=== PATIENT | female | born 1945 | race Caucasian/White ===

== ENCOUNTER 2017-07-22 07:20 | Emergency (ER) | payer OTHER ==
[~2017-07-22] VITALS: Ht 154.9 cm; Wt 77.1 kg
[2017-07-22 07:26] VITALS: BP 162/105
[2017-07-22] MEDS ORDERED: NYST15OI TP (07:47)
[2017-07-22] MEDS ORDERED: NYST15PO9 TP (07:47)
--- NOTE | 2017-07-22 07:47 | PHYS DOC ---
Past History Past Medical History: CAD, Hypertension Past Surgical History: Other Alcohol Use: None Drug Use: None Adult General Chief Complaint Chief Complaint: SKIN RASH/ABSCESS HPI HPI Patient is a 72 year old F who presents with a rash under both breasts that started yesterday. She describes the rash as itchy. She denies other symptoms. She feels that many over the counter tropical medications have not helped her symptoms. She has no other exacerbating or alleviating factors. Review of Systems Review of Systems Constitutional: Denies fever or chills [] Eyes: Denies change in visual acuity, redness, or eye pain [] HENT: Denies nasal congestion or sore throat [] Respiratory: Denies cough or shortness of breath [] Cardiovascular: No additional information not addressed in HPI [] GI: Denies abdominal pain, nausea, vomiting, bloody stools or diarrhea [] : Denies dysuria or hematuria [] Musculoskeletal: Denies back pain or joint pain [] Integument: neg except HPI Neurologic: Denies headache, focal weakness or sensory changes [] Endocrine: Denies polyuria or polydipsia [] All other systems were reviewed and found to be within normal limits, except as documented in this note. Physical Exam Physical Exam Constitutional: Well developed, well nourished, no acute distress, non-toxic appearance. [] HENT: Normocephalic, atraumatic, Eyes: EOMI, conjunctiva normal, no discharge. [] Neck: Normal range of motion, no tenderness, supple, no stridor. [] Cardiovascular:Heart rate regular rhythm, no murmur [] Lungs & Thorax: Bilateral breath sounds clear to auscultation [] Abdomen: Bowel sounds normal, soft, no tenderness, no masses, no pulsatile masses. [] Skin: Erythemitous lesions under both breasts with well demarcated margins and mild central clearing. Satalite lesions were also noted. Neurologic: Alert and oriented X 3, normal motor function, normal sensory function, no focal deficits noted. [] Psychologic: Affect normal, judgement normal, mood normal. [] Current Patient Data Vital Signs Vital Signs Date Time Temp Pulse Resp B/P (MAP) Pulse Ox O2 Delivery O2 Flow Rate FiO2 07/22/17 07:26 97.5 89 16 98 Room Air EKG EKG [] Radiology/Procedures Radiology/Procedures [] Course & Med Decision Making Course & Med Decision Making Pertinent Labs and Imaging studies reviewed. (See chart for details) [] Dragon Disclaimer Dragon Disclaimer This electronic medical record was generated, in whole or in part, using a voice recognition dictation system. Departure Departure: Impression: Primary Impression: Tinea corporis Disposition: 01 HOME, SELF-CARE Condition: STABLE Referrals: JOAN PUCKETT (PCP) Patient Instructions: Yeast Infection of the Skin, [id number] Additional Instructions: Ann was seen in the emergency department for rash. No emergency medical condition was found on history or physical exam. Her symptoms most consistent with a yeast infection. She is given a prescription for nystatin powder and cream. She was encouraged to use one or the other on affected areas 2-3 times a day over the next week. She was also encouraged follow-up with her primary care doctor in the next 7-10 days for further management. Scripts Nystatin (NYSTATIN) 15 Gm Powder 1 LANDON TP BID, #1 BOTTLE Prov: MARIA ISABEL HANLEY MD 07/22/17 Nystatin (NYSTATIN) 15 Gm Oint...g. 1 LANDON TP TID, #15 GM 1 Refill Prov: MARIA ISABEL HANLEY MD 07/22/17 MARIA ISABEL HANLEY MD Jul 22, 2017 07:47
== END 2017-07-22 07:53 | disposition home or self-care (01) ==
LOC: ER 07:20
DX: B35.4 Tinea corporis (principal); I10 Essential (primary) hypertension; I25.10 Atherosclerotic heart disease of native coronary artery without angina pectoris
CPT/HCPCS: 99283

== ENCOUNTER → 2019-05-16 | Outpatient (CLI) | payer MEDICARE ==
[~2019-05-16] MED LIST: NYST15OI TP; NYST15PO9 TP
--- NOTE | 2019-05-16 19:23 | RAD ---
CHEST PA LATERAL History: Cardiomyopathy Comparison: 10/02/2010 Portable Chest X-ray Exam. Findings: Frontal and lateral views of the chest were obtained. Dual-lead left-sided ICD noted. The cardiomediastinal silhouette is mildly enlarged. Pulmonary vasculature is borderline congested. The lungs are clear. No pleural effusion or pneumothorax is seen. There is no acute bone abnormality. IMPRESSION: Borderline congestive heart failure. Electronically signed by: Pablo Degroot MD (05/16/2019 7:20 PM) [id number]
== END | disposition home or self-care (01) ==
LOC: DXRAD 15:18
PROVIDERS: ATTEND Internal Medicine Cardiovascular Disease
DX: I50.9 Heart failure, unspecified (principal); I25.10 Atherosclerotic heart disease of native coronary artery without angina pectoris; I49.01 Ventricular fibrillation; I25.5 Ischemic cardiomyopathy; E78.5 Hyperlipidemia, unspecified
CPT/HCPCS: 71046

== ENCOUNTER → 2019-05-20 | Outpatient (CLI) | payer MEDICARE ==
[2019-05-20 10:50] LABS: ALBUMIN 3.3 g/dL (3.4-5.0); ALBUMIN/GLOBULIN RATIO 0.8 (1.0-1.7); CREATININE 1.9 mg/dL (0.6-1.0); GFR 25.7; POTASSIUM 4.8 mmol/L (3.5-5.1); TOTAL BILIRUBIN 0.4 mg/dL (0.2-1.0); TOTAL PROTEIN 7.5 g/dL (6.4-8.2)
[2019-05-20 14:50] LABS: FREE T4 1.54 ng/dL (0.76-1.46); THYROID STIM HORMONE (TSH) 3.201 uIU/mL (0.358-3.740)
== END | disposition home or self-care (01) ==
LOC: LAB 10:13
PROVIDERS: ATTEND Internal Medicine Cardiovascular Disease
DX: I25.10 Atherosclerotic heart disease of native coronary artery without angina pectoris (principal); E78.2 Mixed hyperlipidemia; I49.01 Ventricular fibrillation; E78.5 Hyperlipidemia, unspecified; I25.5 Ischemic cardiomyopathy
CPT/HCPCS: 36415; 80053; 80061; 84439; 84443

== ENCOUNTER → 2019-12-22 | Outpatient (CLI) | payer MEDICARE ==
[2019-12-22 12:02] LABS: ALBUMIN/GLOBULIN RATIO 0.7 (1.0-1.7); CALCIUM 8.7 mg/dL (8.5-10.1); CREATININE 1.8 mg/dL (0.6-1.0); GFR 27.4; POTASSIUM 4.7 mmol/L (3.5-5.1); TOTAL BILIRUBIN 0.4 mg/dL (0.2-1.0); TOTAL PROTEIN 7.4 g/dL (6.4-8.2)
[2019-12-22 14:30] LABS: FREE T4 1.6 ng/dL (0.76-1.46); THYROID STIM HORMONE (TSH) 2.458 uIU/mL (0.358-3.740)
--- NOTE | 2019-12-22 15:21 | RAD ---
PA and lateral chest x-ray compared to similar exam dated May 162019 for cardiomyopathy, shortness of air. FINDINGS: Dual-lead AICD and cardiomegaly are redemonstrated and grossly unchanged. Fine interstitial changes are seen throughout the lung bases and may be indicative of a developing interstitial pulmonary edema. No definite pleural effusions however. Lung apices are clear. No significant osseous abnormalities. IMPRESSION: 1. Cardiomegaly with fine interstitial reticular opacities in both lung bases which may reflect early interstitial pulmonary edema. No pleural effusions. Electronically signed by: Oliver Voss MD (12/22/2019 3:18 PM) [id number]
== END | disposition home or self-care (01) ==
LOC: DXRAD 10:48
PROVIDERS: ATTEND Internal Medicine Cardiovascular Disease
DX: I49.01 Ventricular fibrillation (principal); E78.5 Hyperlipidemia, unspecified; I25.10 Atherosclerotic heart disease of native coronary artery without angina pectoris; I25.5 Ischemic cardiomyopathy
CPT/HCPCS: 36415; 71046; 80053; 83735; 84439; 84443

== ENCOUNTER → 2020-03-09 | Outpatient (CLI) | payer MEDICARE ==
[2020-03-09 13:55] LABS: CALCIUM 8.7 mg/dL (8.5-10.1); GFR 24.2
[2020-03-09 14:00] LABS: POTASSIUM 4.7 mmol/L (3.5-5.1)
== END ==
LOC: LAB 13:22
PROVIDERS: ATTEND Internal Medicine Cardiovascular Disease
DX: I25.10 Atherosclerotic heart disease of native coronary artery without angina pectoris (principal); E78.5 Hyperlipidemia, unspecified
CPT/HCPCS: 36415; 80048

== ENCOUNTER → 2020-05-27 | Outpatient (CLI) | payer MEDICARE ==
[2020-05-27 12:42] LABS: DIRECT BILIRUBIN 0.1 mg/dL (0.0-0.2); TOTAL BILIRUBIN 0.4 mg/dL (0.2-1.0); TOTAL PROTEIN 7.2 g/dL (6.4-8.2)
== END ==
LOC: LAB 11:29
PROVIDERS: ATTEND Internal Medicine Cardiovascular Disease
DX: Z79.899 Other long term (current) drug therapy (principal)
CPT/HCPCS: 36415; 80076; 84443

== ENCOUNTER → 2020-06-22 | Outpatient (CLI) | payer MEDICARE ==
--- NOTE | 2020-06-22 16:13 | RAD ---
Chest radiograph 06/22/2020 10:55 AM INDICATION: Shortness of breath. ICD implant. COMPARISON: 12/14/2019 TECHNIQUE: Frontal and lateral views of the chest are provided. FINDINGS: The cardiomediastinal silhouette is enlarged, stable. Left chest wall cardiac device is identified wi th leads projecting over the right atrium and right ventricle. There is ectasia of the thoracic aorta . There are no pleural effusions. There is no pulmonary vascular congestion. There is no pneumothorax. Patchy interstitial airspace disease identified in the left upper lobe and right lower lobe. No significant osseous abnormality is identified. IMPRESSION: Left chest wall cardiac device is in similar position compared prior examination. There is patchy interstitial airspace disease in the left upper lobe and right lower lobe. Considerat ion may be given for multi focal infiltrate or interstitial pneumonitis. Recommend short-term follow- up two-view chest radiograph 10 to resolution. Electronically signed by: Melissa Flores MD (06/22/2020 4:11 PM) [id number]
== END ==
LOC: DXRAD 10:46
PROVIDERS: ATTEND Internal Medicine Cardiovascular Disease
DX: R06.02 Shortness of breath (principal); I51.7 Cardiomegaly
CPT/HCPCS: 71046

== ENCOUNTER → 2020-07-06 | Outpatient (CLI) | payer MEDICARE ==
--- NOTE | 2020-07-06 14:33 | RAD ---
EXAM: XR CHEST 2V 07/06/2020 9:57 AM CLINICAL INDICATION: Follow-up pneumonia COMPARISON: Chest radiograph 06/22/2020 TECHNIQUE: PA and lateral views of the chest FINDINGS: A left pacemaker/AICD is unchanged. Cardiomegaly is stable. The lungs are well-expanded. I ll-defined opacities in the left upper lobe are slightly decreased. No pleural effusion or pneumothor ax. No acute osseous abnormality. IMPRESSION: Persistent ill-defined opacities in the left upper lobe, at most slightly decreased. Rec ommend continued follow-up to ensure resolution. Electronically signed by: Nereyda Banks MD (07/06/2020 2:30 PM) [id number]
== END ==
LOC: RAD 09:48
PROVIDERS: ATTEND Internal Medicine Cardiovascular Disease
DX: I51.7 Cardiomegaly (principal); Z79.899 Other long term (current) drug therapy
CPT/HCPCS: 71046

== ENCOUNTER → 2021-06-09 | Outpatient (CLI) | payer MEDICARE ==
--- NOTE | 2021-06-09 09:26 | RAD ---
EXAM: Chest, 2 views. HISTORY: Amiodarone use. COMPARISON: 07/06/2020 FINDINGS: 2 views of the chest are obtained. There is stable chronic interstitial prominence and card iomegaly. There is no consolidation, pleural effusion or pneumothorax. There is a cardiac pacemaker d efibrillator unchanged in position. IMPRESSION: Stable chronic appearing interstitial prominence and cardiomegaly. Electronically signed by: Yeni Moreira MD (06/09/2021 9:24 AM) [id number]
== END ==
LOC: RAD 08:59
PROVIDERS: ATTEND Internal Medicine Cardiovascular Disease
DX: I51.7 Cardiomegaly (principal); Z79.899 Other long term (current) drug therapy; Z95.0 Presence of cardiac pacemaker
CPT/HCPCS: 71046

== ENCOUNTER 2021-06-13 09:15 | Emergency (ER) | payer MEDICARE ==
[~2021-06-13] VITALS: Ht 152.4 cm; Wt 76.0 kg
--- NOTE | 2021-06-13 09:20 | PHYS DOC ---
Past History Past Medical History: CAD, Hypertension Past Surgical History: Other Alcohol Use: None Drug Use: None Adult General Chief Complaint Chief Complaint: SHORTNESS OF BREATH HPI HPI Patient is a 76-year-old female with past medical history significant for CAD, CHF, hypercholesteremia and hypertension who presents to the emergency department with a chief complaint of shortness of breath for about the last 3 days more than usual. States she has had some dyspnea on exertion, and orthopnea and has had to sleep sitting up. States that she is probably gained a few pounds over the last week. Does not feel as if she is having any swelling or edema. States she is making urine and stool normally for her with no blood in either. States she is taking all her medications as prescribed. States she has had all of her COVID vaccinations and denies any known ill contacts. Denies any recent travels, fevers, chest pain, nausea, vomiting, abdominal pain. Review of Systems Review of Systems Review of systems otherwise unremarkable except noted in HPI Physical Exam Physical Exam Constitutional: Well developed, well nourished, in hypoxic respiratory distress, appears ill HENT: Normocephalic, atraumatic, bilateral external ears normal, oropharynx dry, no oral exudates, nose normal. [] Eyes: , conjunctiva normal, no discharge. [] Neck: Normal range of motion, no tenderness, supple, no stridor. [] Cardiovascular:Heart rate regular rhythm, no murmur [] Lungs & Thorax: Respiratory distress, increased work of breathing, bilateral end expiratory wheeze with global rhonchi and decreased air movement Abdomen: soft, no tenderness, no masses, no pulsatile masses. [] Skin: Warm, dry, no erythema, no rash, capillary refill approximately 5 seconds. [] Back: No tenderness, no CVA tenderness. [] Extremities: No tenderness, no cyanosis, no clubbing, ROM intact, no edema. [] Neurologic: Alert and oriented X 3, normal motor function, normal sensory function, able to sit, stand and walk, no focal deficits noted. [] Psychologic: Affect normal, judgement normal, mood normal. [] EKG EKG [] Radiology/Procedures Radiology/Procedures [] Heart Score C/O Chest Pain: No Risk Factors: Risk Factors: DM, Current or recent (<one month) smoker, HTN, HLP, family history of CAD, obesity. Risk Scores: Risk Factors: DM, Current or recent (<one month) smoker, HTN, HLP, family history of CAD, obesity. Course & Med Decision Making Course & Med Decision Making Patient is a 76-year-old female who presents with a chief complaint of shortness of breath Tachypnea, hypoxia on room air, normal heart rate the patient has an ICD/pacemaker. Physical exam noted above. EKG with a rate of 61, QRS of 132, QTc of 488, no STEMI. Troponin not concerning. Chest x-ray suggestive of pulmonary edema. Cannot rule out pneumonia so started on antibiotics and cultures obtained. BNP elevated to 4000 started on first dose of diuretics Given patient's history, clinical presentation and chest x-ray, pulmonary edema secondary to some degree of decompensated cardiac function high on the differential. Placed on CPAP given patient's increased work of breathing which seem to help significantly. Discussed all findings with family and recommended admission for continued evaluation and treatment of respiratory failure with hypoxia and pulmonary edema and possible pneumonia. Family grateful, verbalized understanding and agreed with plan of transfer and admission to [facility]. Romana Disclaimer Dragon Disclaimer This electronic medical record was generated, in whole or in part, using a voice recognition dictation system. Departure Departure: Impression: Primary Impression: Shortness of breath Additional Impressions: Respiratory failure Hypoxemia Pulmonary edema Disposition: 02 [facility] Admitting Physician: Other Condition: STABLE Referrals: MANDIE PETERS MD (PCP) Problem Qualifiers OFELIA SILVERMAN MD Jun 13, 2021 09:20
--- NOTE | 2021-06-13 09:44 | RAD ---
AP chest. HISTORY: Short of breath AP view was taken of the chest. There is a left pacemaker with 2 pacing leads without change. The hea rt is enlarged. There is pulmonary vascular congestion. There is mild haziness in the lungs most cons istent with mild pulmonary edema although atypical pneumonia would be possible. IMPRESSION: 1. Cardiomegaly with mild vascular congestion. 2. Hazy lung disease most consistent with pulmonary edema. Electronically signed by: Karri Banuelos MD (06/13/2021 9:42 AM) [facility]
[2021-06-13 10:21] LABS: BASO # 0.1 x10^3/uL (0.0-0.2); BASO % 1 % (0-3); EOS # 0.1 x10^3/uL (0.0-0.7); EOS % 1 % (0-3); HEMATOCRIT 34.5 % (36.0-47.0); HEMOGLOBIN 11.4 g/dL (12.0-15.5); LYMPH # 1.4 x10^3/uL (1.0-4.8); LYMPH % 14 % (24-48); MEAN CORPUSCULAR HEMOGLOBIN 33 pg (25-35); MEAN CORPUSCULAR HGB CONC 33 g/dL (31-37); MEAN CORPUSCULAR VOLUME 99 fL (79-100); MONO # 0.6 x10^3/uL (0.0-1.1); MONO % 6 % (0-9); NEUT % 79 % (31-73); PLATELET COUNT 317 x10^3/uL (140-400); RED BLOOD COUNT 3.49 x10^6/uL (3.50-5.40); RED CELL DISTRIBUTION WIDTH 14.2 % (11.5-14.5); WHITE BLOOD COUNT 10.1 x10^3/uL (4.0-11.0)
[2021-06-13 10:23] LABS: CALCIUM 9.2 mg/dL (8.5-10.1); CREATININE 1.7 mg/dL (0.6-1.0); GFR 29.1; POTASSIUM 4.7 mmol/L (3.5-5.1)
[2021-06-13 10:29] LABS: ALBUMIN 3.2 g/dL (3.4-5.0); ALBUMIN/GLOBULIN RATIO 0.8 (1.0-1.7); MAGNESIUM 2.1 mg/dL (1.8-2.4); TOTAL BILIRUBIN 0.7 mg/dL (0.2-1.0); TOTAL PROTEIN 7.4 g/dL (6.4-8.2)
[2021-06-13 10:38] LABS: BGAS PH 7.42 (7.35-7.45)
[2021-06-13] MEDS: FUROSEMIDE 40 MG/4 ML VIAL IVP ONE (12:05)
[2021-06-13 12:25] VITALS: BP 133/72
[2021-06-13 14:02] LABS: BACTERIA,URINE MANY /HPF (0-FEW); CLARITY,URINE CLEAR; COLOR,URINE YELLOW; GLUCOSE,URINE NEG (NEG); NITRITE,URINE NEG (NEG); RBC,URINE OCC /HPF (0-2); SQUAMOUS EPITHELIAL CELL,UR FEW /LPF; UROBILINOGEN,URINE 0.2 mg/dL (0.2 mg/dL); WBC,URINE OCC /HPF (0-4)
--- NOTE | 2021-06-13 19:41 | EKG ---
[address] [address] Test Date: 2021-06-13 Test Time: 10:00:53 Pat Name: CELESTINE AMIN Department: Room: Gender: F Physician [facility]: : 1945 Requested By: OFELIA SILVERMAN Order Number: [id number] Reading MD: Measurements Intervals [place] Rate: 61 P: 0 VA: 270 QRS: -34 QRSD: 132 T: 133 QT: 478 QTc: 488 Interpretive Statements SINUS RHYTHM PROLONGED VA INTERVAL ABNORMAL LEFT AXIS DEVIATION NON SPECIFIC INTRAVENTRICULAR BLOCK ABNORMAL ECG RI6.01 No previous ECG available for comparison
== END 2021-06-13 13:30 | disposition admitted as inpatient to this hospital (09) ==
LOC: ER 09:15
DX: J96.91 Respiratory failure, unspecified with hypoxia (principal); J81.1 Chronic pulmonary edema; I25.10 Atherosclerotic heart disease of native coronary artery without angina pectoris; I11.0 Hypertensive heart disease with heart failure; I50.9 Heart failure, unspecified; E78.00 Pure hypercholesterolemia, unspecified; Z20.822 Contact with and (suspected) exposure to COVID-19
CPT/HCPCS: 36415; 71045; 80053; 81001; 82803; 83605; 83735; 83880; 84484; 85025; 85379; 85610; 85730; 87040; 87086; 87426; 93005; 96365; 96375; 99285; C9803; J1940; J1956; U0003